=== PATIENT | female | born 1945 | race Caucasian/White ===

== ENCOUNTER 2024-05-13 13:36 | Emergency (ER) | payer MEDICARE, MEDICAID, SELFPAY ==
[2024-05-13 13:38] VITALS: BP 102/68; PULSE 74; RESP 18; TEMP 36.6; O2SAT 96; BMI 21.9
--- NOTE | 2024-05-13 13:39 | XR_ITS ---
WS: [id number] Portable AP upright chest, 05/13/2024 Clinical Data: weakness Comparison: None. Findings: No nodules, masses or effusions are seen. The heart is normal. The pulmonary vascularity is not increased. No pneumonia or pneumothorax is seen. The descending thoracic aorta shows mild tortuosity. XR/XR chest 1V portable [id number] Impression: Atherosclerosis.
--- NOTE | 2024-05-13 13:39 | ECG_ITS ---
[facility] Test Date: 2024-05-13 Pat Name: Randi Palma Department: Room: Gender: Female Counter Attendant: : 1945 Requested By: Denilson Lee Order Number: [id number] Manny MD: Matheus Nolan M.D. Measurements Intervals [place] Rate: 75 P: 74 MN: 170 QRS: 79 QRSD: 79 T: 51 QT: 395 QTc: 443 Interpretive Statements SINUS RHYTHM WITH OCCASIONAL SUPRAVENTRICULAR PREMATURE COMPLEXES LEFT ATRIAL ENLARGEMENT [-0.15mV P-WAVE IN V1/V2] POSSIBLE RIGHT VENTRICULAR CONDUCTION DELAY [RSR (QR) IN V1/V2] No previous ECG available for comparison Electronically Signed On 05-14-2024 21:57:30 PRESENTATION DESIGNER by Matheus Nolan M.D. [email or web address]
--- NOTE | 2024-05-13 13:48 | ED_ITS ---
HPI - URI/Sore Throat 2 General: Chief Complaint: Upper Respiratory Infection Stated Complaint: not feeling well Time Seen by Provider: 05/13/24 13:38 Source: EMS Mode of arrival: EMS Limitations: altered mental status History of Present Illness: 78-year-old female who is here from [facility] home for feeling ill. Patient has dementia no history is available from her. Per snf she has been having cough congestion diarrhea over the last 3 to 4 days. No known fevers no pain. Patient's vital signs here in normal Related Data Home Medications ?Medication ?Instructions ?Recorded ?Confirmed acetaminophen 325 mg tablet 650 mg PO Q6H PRN Pain 08/3005/13/24 (Tylenol) bisacodyl 10 mg rectal suppository 10 mg NV DAILY PRN Constipation 05/13/24 05/13/24 (Dulcolax (bisacodyl)) guaifenesin 600 mg tablet, 600 mg PO BID 05/13/2408/30 extended release 12 hr (Mucinex) hydroxyzine HCl 25 mg tablet 25 mg PO BID 05/13/2408/30 magnesium hydroxide 400 mg/5 mL 30 ml PO DAILY PRN Con stipation 05/13/24 05/13/24 oral suspension (Milk of Magnesia) sertraline 50 mg tablet 75 mg PO QPM 05/13/24 Allergies Allergy/AdvReac Type Severity Reaction Status Date / Time Alpha-Gal Allergy Unknown Verified 05/13/24 13:47 (Ubmuozspa-Ydaxs-2,3-Gala Physical Exam 2 Const: COMMON NORMALS: no acute distress, patient oriented x3 and healthy appearing HENMT: COMMON NORMALS: normocephalic and atraumatic HEAD & SCALP: n ormocephalic and atraumatic Eye: COMMON NORMALS: conjunctivae normal CONJUNCTIVA: Yes conjunctivae normal Neck/C-Spine: COMMON NORMALS: full ROM and supple Chest: COMMONS NORMALS: normal inspection of the chest Resp: COMMON NORMALS: normal respiratory effort, No retractions, No use of accessory muscles and clear to auscultation bilaterally AUSCULTATION: clear to auscultation bilaterally Cardio: COMMON NORMALS: regular rate, regular rhythm and No murmurs present (Cardio) RATE: regular rate RHYTHM: regular rhythm GI: COMMON NORMALS: Normal to inspection, nondistended, normoactive bowel sounds present, Soft to palpation, non-tender and no masses PALPATION: Yes Soft to palpation Extremity: COMMON NORMALS: normal to inspection and full ROM Neuro: COMMON NORMALS: patient oriented x3, moves all extremities and no focal motor deficits Psych: COMMON NORMALS: mental status grossly normal, Normal thought process present and cooperative THOUGHT PROCESS: Normal thought process present Skin: COMMON NORMALS: no rashes or lesions noted and no wounds GENERAL SKIN EXAM: no rashes or lesions noted Course 2 Vital Signs: Vital signs: Vital Signs Temperature 97.8 F 05/13/24 13:38 Pulse Rate 74 05/13/24 13:38 Respiratory Rate 18 05/13/24 13:38 Blood Pressure 102/68 05/13/24 13:38 Pulse Oximetry 96 05/13/24 13:38 Oxygen Delivery Me thod Room Air 05/13/24 13:38 MDM - URI/Sore Throat Medical Decision Making Patient presents here with influenza she is well-appearing here blood works normal no signs of any severe dehydration she stable for discharge follow-up with PCP return if worsening. Medical Records I reviewed the patient's medical records. Lab Data I reviewed the patient's lab results. 05/13/24 14:19 05/13/24 14:19 Radiology Impressions Chest X-Ray 05/13/24 13:39 Impression: Atherosclerosis. Laboratory Results WBC 5.16 10^3/uL (3.29-11.43) 05/13/24 14:19 RBC 4.27 10^6/uL (3.85-5.65) 05/13/24 14:19 Hgb 11.60 g/dL (11.27-16.99) 05/13/24 14:19 Hct 36.4 % (36-47) 05/13/24 14:19 MCV 85.2 fl (85-98) 05/13/24 14:19 MCH 27.2 pg (27-33) 05/13/24 14:19 MCHC 31.9 g/dL (30-55) 05/13/24 14:19 RDW 12.8 % (12.1-15.1) 05/13/24 14:19 Plt Count 167 10^3/cmm (157-399) 05/13/24 14:19 MPV 11.0 fL (7.4-10.4) H 05/13/24 14:19 Neut % (Auto) 48.0 % 05/13/24 14:19 Lymph % (Auto) 45.2 % 05/13/24 14:19 [place] % (Auto) 5.8 % 05/13/24 14:19 Eos % (Auto) 0.6 % 05/13/24 14:19 Baso % (Auto) 0.2 % 05/13/24 14:19 Neut # (Auto) 2.48 10^3/uL (1.8-7.7) 05/13/24 14:19 Lymph # (Auto) 2.3 10^3/uL (0.8-4.8) 05/13/24 14:19 [place] # (Auto) 0.3 10^3/uL (0.2-0.9) 05/13/24 14:19 Eos # (Auto) 0.0 10^3/uL (0.0-0.8) 05/13/24 14:19 Baso # (Auto) 0.0 10^3/uL (0.0-0.1) 05/13/24 14:19 Nucleated RBC % (auto) 0 % 05/13/24 14:19 Nucleated RBCs # 0.0 /100WBC 05/13/24 14:19 Sodium 136 mmol/L (136-145) 05/13/24 14:19 Potassium 4.2 mmol/L (3.5-5.1) 05/13/24 14:19 Chloride 101 mmol/L (98-107) 05/13/24 14:19 Carbon Dioxide 26 mmol/L (22-29) 05/13/24 14:19 Anion Gap 13.2 (5-19) 05/13/24 14:19 BUN 16 mg/dL (8-23) 05/13/24 14:19 Creatinine 0.7 mg/dL (0.5-0.9) 05/13/24 14:19 GFR Calculation Not Reportable 05/13/24 14:19 Glucose 119 mg/dL (65-115) H 05/13/24 14:19 Calculated Osmolality 284 mOsm/kg (285-295) L 05/13/24 14:19 Calcium 9.3 mg/dL (8.5-10.5) 05/13/24 14:19 Total Bilirubin 0.5 mg/dL (0.15-1.2) 05/13/24 14:19 AST 25 U/L (0-32) 05/13/24 14:19 ALT 14 U/L (0-33) 05/13/24 14:19 Alkaline Phosphatase 61 U/L (35-105) 05/13/24 14:19 Total Protein 6.3 g/dL (6.6-8.7) L 05/13/24 14:19 Albumin 3.6 g/dL (3.5-5.2) 05/13/24 14:19 Globulin 2.7 g/dL (1.3-4.6) 05/13/24 14:19 Coronavirus (PCR) Negative (Negative) 05/13/24 13:49 Influenza A (PCR) Positive (Negative) 05/13/24 13:49 Influenza Type B (PCR) Negative (Negative) 05/13/24 13:49 RSV (PCR) Negative (Negative) 05/13/24 13:49 All radiology interpretation(s) finalized by discharge EKG Data EKG 1: I personally reviewed and interpreted this EKG as follows: EKG interpretation date: 05/13/24 EKG interpretation time: 13:44 Interpretation: nsr hr [address] elevation qrs [id number] Discharge Plan Discharge Patient Disposition: Home Clinical Impression: Influenza Condition: Stable Prescriptions: No Action acetaminophen [Tylenol] 325 mg Tablet 650 mg PO Q6H PRN (Reason: Pain) magnesium hydroxide [Milk of Magnesia] 400 mg/5 mL Suspension 30 ml PO DAILY PRN (Reason: Constipation) bisacodyl [Dulcolax (bisacodyl)] 10 mg Suppository 10 mg NV DAILY PRN (Reason: Constipation) hydroxyzine HCl 25 mg tablet 25 mg PO BID sertraline 50 mg tablet 75 mg PO QPM guaifenesin [Mucinex] 600 mg Tablet Extended Release 12hr 600 mg PO BID Discharge Orders: Discharge ED (Routine); Ordered 05/13/24 Ordered By: Denilson Lee Discharge Diet: Advance as tolerated Discharge Activity: Resume usual activity Patient Instructions: Influenza (ED) Print Language: Belarusian Coding Level of Care Code ED Senior Sales Director for [employer]
--- NOTE | 2024-05-13 14:02 | PC.PHAR ---
Patient is from [facility]
[2024-05-13] MEDS: diphenoxylate/atropine Tablet 1 TAB PO (14:26)
[2024-05-13] MEDS: ondansetron 2 mg/ML SDV 2 mL 4 MG IVP (14:26)
[2024-05-13 14:33] LABS: Basophils % 0.2 %; Eosinophils % 0.6 %; Hematocrit 36.4 % (36-47); Lymphocytes # 2.3 10^3/uL (0.8-4.8); Lymphocytes % 45.2 %; Mean Corpuscular HGB Conc 31.9 g/dL (30-55); Mean Corpuscular Hemoglobin 27.2 pg (27-33); Mean Corpuscular Volume 85.2 fl (85-98); Monocytes # 0.3 10^3/uL (0.2-0.9); Monocytes % 5.8 %; Neutrophils # 2.48 10^3/uL (1.8-7.7); Nucleated Red Blood Cells % 0 %; Platelet Count 167 10^3/cmm (157-399); Red Blood Count 4.27 10^6/uL (3.85-5.65); Red Cell Distribution Width 12.8 % (12.1-15.1); White Blood Count 5.16 10^3/uL (3.29-11.43)
[2024-05-13 14:41] LABS: Covid PCR NEGATIVE (Negative); Influenza A POSITIVE (Negative); Influenza B NEGATIVE (Negative); Respiratory Syncytial Virus Ce NEGATIVE (Negative)
[2024-05-13 14:43] LABS: Alanine Aminotransferase 14 U/L (0-33); Albumin Level 3.6 g/dL (3.5-5.2); Alkaline Phosphatase 61 U/L (35-105); Anion Gap 13.2 (5-19); Aspartate Amino Transferase 25 U/L (0-32); Blood Urea Nitrogen 16 mg/dL (8-23); Calcium 9.3 mg/dL (8.5-10.5); Carbon Dioxide 26 mmol/L (22-29); Chloride 101 mmol/L (98-107); Globulin 2.7 g/dL (1.3-4.6); Glucose 119 mg/dL (65-115); Osmolality Calculated 284 mOsm/kg (285-295); Potassium 4.2 mmol/L (3.5-5.1); Sodium 136 mmol/L (136-145); Total Bilirubin 0.5 mg/dL (0.15-1.2); Total Protein 6.3 g/dL (6.6-8.7)
[2024-05-13 15:13] VITALS: BP 97/58; PULSE 73; O2SAT 96
== END 2024-05-13 15:13 | disposition home or self-care (01) ==
PROVIDERS: Emergency Provider Emergency Medicine
DX: J10.1 Influenza due to other identified influenza virus with other respiratory manifestations (principal); Z11.52 Encounter for screening for COVID-19
CPT/HCPCS: 36415; 71045; 80053; 85025; 87637; 93005; 96374; 99285; J2405